=== PATIENT | male | born 1990 | race Caucasian/White ===

== ENCOUNTER 2022-07-28 11:11 | Outpatient (CLI) | payer BC | END 2022-07-28 11:12 | disposition home or self-care (01) | LOC: SCSRAD 11:11 | PROVIDERS: ATTEND Family Medicine Sports Medicine | DX: M25.561 Pain in right knee (principal) ==

== ENCOUNTER 2022-08-17 11:57 | Outpatient (CLI) | payer BC | END 2022-08-17 11:58 | disposition home or self-care (01) | LOC: SCSMRI 11:57 | PROVIDERS: ATTEND Family Medicine Sports Medicine | DX: M25.561 Pain in right knee (principal) ==